=== PATIENT | male | born 2000 | race Caucasian/White ===

== ENCOUNTER 2019-03-10 02:33 | Emergency (ER) | payer OTHER ==
--- NOTE | 2019-03-10 03:49 | ED ---
Throat Pain/Nasal Congestion - HPI Summary HPI Summary: This pt is a 19 Y/O M presenting to [facility] accompanied by his friend with a CC of a possible ear infection that started at dinner time 03/09/19. He states that he had a fever at the onset. He rates the pain an 8/10 in severity. He states that both ears hurt but his L one is worse than his right. He has no alleviating factors or aggravating factors. He states that he has a PMHx of ear infections and had tubes in place when he was younger. - History of Current Complaint Chief Complaint: EDEarPain Time Seen by Provider: 03/10/19 03:39 Hx Obtained From: Patient Onset/Duration: Sudden Onset - 03/09/19 while eating dinner, Lasting Hours, Still Present Severity: Severe - 8/10 Cough: None Related History: Prior ENT Surgery - States that he had PE tubes in ears when he was younger - Allergies/Home Medications Allergies/Adverse Reactions: Allergies Allergy/AdvReac Type Severity Reaction Status Date / Time amoxicillin Allergy Anaphylatic Verified 03/10/19 02:38 Shock nut - unspecified Allergy Anaphylatic Verified 03/10/19 02:38 Shock Penicillins Allergy Anaphylatic Verified 03/10/19 02:38 Shock PMH/Surg Hx/FS Hx/Imm Hx Previously Healthy: Yes Endocrine/Hematology History: Denies: Hx Diabetes Cardiovascular History: Denies: Hx Hypertension - Surgical History Surgical History: Yes Surgery Procedure, Year, and Place: PE Tubes when he was younger Infectious Disease History: No Infectious Disease History: Denies: Traveled Outside the [place] in Last 30 Days - Family History Known Family History: Positive: Cardiac Disease - Maternal - Social History Occupation: Student - [employer] Lives: Dormitory/Roommates Alcohol Use: Occasionally Hx Substance Use: No Hx Tobacco Use: No Smoking Status (MU): Never Smoked Tobacco Review of Systems Positive: Fever Positive: Ear Ache - States R is worse than L All Other Systems Reviewed And Are Negative: Yes Physical Exam - Summary Physical Exam Summary: Appearance: Well-appearing, Well-nourished, lying in bed comfortably Skin: Warm, dry, no obvious rash Eyes: sclera anicteric, no conjunctival pallor ENT: mucous membranes moist, pharynx appears normal, L TM is bulging, erythematous, and opaque Neck: Supple, nontender Respiratory: Clear to auscultation, no signs of respiratory distress Cardiovascular: Normal S1, S2. No murmurs. Normal distal pulses in tibial and radial bilaterally. Abdomen: Soft, nontender, normal active bowel sounds present Musculoskeletal: Normal, Strength/ROM Intact Neurological: A&Ox3, awake and alert, mentation is normal, speech is fluent and appropriate Psychiatric: affect is normal, does not appear anxious or depressed Triage Information Reviewed: Yes Vital Signs On Initial Exam: Initial Vitals Temp Pulse Resp BP Pulse Ox 97.7 F 73 16 137/89 98 03/10/19 02:35 03/10/19 02:35 03/10/19 02:35 03/10/19 02:35 03/10/19 02:35 Vital Signs Reviewed: Yes Diagnostics - Vital Signs Vital Signs Temp Pulse Resp BP Pulse Ox 03/10/19 02:35 97.7 F 73 16 137/89 98 - Laboratory Lab Statement: Any lab studies that have been ordered have been reviewed, and results considered in the medical decision making process. EENT Course/Dx - Course Course Of Treatment: This pt is a 19 Y/O M presenting to [facility] accompanied by his friend with a CC of a possible ear infection that started at dinner time . He states that he had a fever at the onset. He rates the pain an 8/10 in severity. He states that his L ear hurts worse than is R. His PE found that his L TM is bulging, erythematous, and opaque. He will be discharged home with a Dx of a L ear infection. - Diagnoses Provider Diagnoses: Infection of left ear Discharge ED - Sign-Out/Discharge Documenting (check all that apply): Patient Departure - discharge Patient Received Moderate/Deep Sedation with Procedure: No - Discharge Plan Condition: Good Disposition: HOME Prescriptions: Azithromycin TAB* [Zithromax TAB (Z-GILBERTO) 250 mg #6 tabs] 2 tab PO .TODAY, THEN 1 DAILY #1 gilberto oxyCODONE/Acetamin 5/325 MG* [Percocet 5/325 TAB*] 2 tab PO Q4H PRN #8 tab MDD 6 PRN Reason: Pain - Severe Patient Education Materials: Ear Infection (ED) Referrals: [facility] @ [Outside] - 2 Days - Billing Disposition and Condition Condition: GOOD Disposition: Home - Attestation Statements Document Initiated by Scribe: Yes Documenting Scribe: Abhilash Esposito Provider For Whom Feliciano is Documenting (Include Credential): Stan Kerr MD Scribe Attestation: I, Abhilash Esposito, scribed for Stan Kerr MD on 03/10/19 at 1843. Scribe Documentation Reviewed: Yes Provider Attestation: The documentation as recorded by the nitisheAbhilash accurately reflects the service I personally performed and the decisions made by me, Stan Kerr MD Status of Scribe Document: Viewed
[2019-03-10] MEDS ORDERED: oxyCODONE/Acetamin 5/325 MG* TAB PO ONE (03:50)
[2019-03-10 04:07] VITALS: BP 122/62
== END 2019-03-10 04:07 | disposition home or self-care (01) ==
LOC: ED 02:33
DX: H66.92 Otitis media, unspecified, left ear (principal); Z88.1 Allergy status to other antibiotic agents; Z88.0 Allergy status to penicillin
CPT/HCPCS: 99281; A9270-GY